=== PATIENT | female | born 1970 | race Caucasian/White ===

== ENCOUNTER 2022-06-25 08:46 | Emergency (ER) | payer OTHER, SELFPAY ==
[2022-06-25] VITALS (12 sets, daily range): BP systolic 141–170; BP diastolic 67–91; PULSE 57–68; RESP 16–22; TEMP 36.9; O2SAT 95–100; BMI 29.2
[2022-06-25 10:29] LABS: Add Manual Diff / Slide Review NO; Basophils Absolute Auto 0 /uL (0-100); Basophils Percent Auto 0.6 % (0-2); Eosinophils Absolute Auto 100 /uL (0-450); Eosinophils Percent Auto 1.2 % (2-4); Hematocrit 37.8 % (36-46); Hemoglobin 12.9 g/dL (12.0-16.0); Lymphocytes Absolute Auto 1500 /uL (1100-4500); Lymphocytes Percent Auto 26.3 % (25-40); Mean Corpuscular HGB Conc 34.2 % (30-36); Mean Corpuscular Hemoglobin 30.5 PG (26-34); Mean Corpuscular Volume 89.1 fL (80-100); Monocytes Absolute Auto 500 /uL (0-900); Monocytes Percent Auto 9.6 % (3-14); Neutrophils Absolute Auto 3500 /uL (1500-7000); Neutrophils Percent Auto 62.3 % (50-75); Platelet Count 283 X10^3/uL (150-400); Red Blood Cell Count 4.24 X10^6/uL (4.0-5.2); Red Cell Distribution Width 13.4 % (11.6-14.8); White Blood Cell Count 5.6 X10^3/uL (4.5-11.0)
[2022-06-25 10:47] LABS: Alanine Aminotransferase 14 IU/L (<35); Albumin 4.2 g/dL (3.5-5.0); Albumin Globulin Ratio 1.4 (1.0-2.8); Alkaline Phosphatase 43 U/L (38-126); Aspartate Aminotransferase 26 IU/L (14-36); BUN Creatinine Ratio 20.6 (6-22); Bilirubin Total 0.3 mg/dL (0.2-1.3); Blood Urea Nitrogen 13 mg/dL (7-17); Carbon Dioxide 27 mmol/L (22-32); Chloride 102 mmol/L (98-107); Estimated Glomerular Filt Rate > 60 mL/min (>60); Globulin 3.1 g/dL (1.7-4.1); Glucose 107 mg/dL (70-100); HEMOLYSIS < 15 (0-50); Lipase 43 U/L (23-300); Potassium 4.2 mmol/L (3.4-5.1); Sodium 139 mmol/L (137-145); Total Protein 7.3 g/dL (6.3-8.2)
--- NOTE | 2022-06-25 11:05 | ED_ITS ---
HPI - Female Genitourinary General Chief complaint: Abdominal Pain Stated complaint: bleeding 2 weeks pain is getting worse Time Seen by Provider: 06/25/22 10:43 Source: patient Mode of arrival: Ambulatory Limitations: no limitations History of Present Illness HPI Narrative: This is a 51-year-old female with no known medical issues presents with complaint of new right lower quadrant pain but also vaginal bleeding for the past 2 weeks. Patient states that she still gets fairly regular. Sometimes off by a week but pretty regular up to this point she had her last. Then 2 weeks later started bleeding around the 14 of June and has had persistent vaginal bleeding since little bit more than normal but has been tapering off recently. Denies lightheadedness or passing out, no fevers a little chilled today. Some mild nausea but no vomiting today. Patient states she developed right lower quadrant pain that caused her to have to be hunched over fairly abruptly today. She was not having any lower abdominal pain before. She denies back or flank pain. Patient denies any black or bloody stool. Patient states she sometimes gets constipated and takes a stool softener. Denies any urgency or frequency but has had a little bit of dysuria. No large clots today or sudden gushes of blood. Patient states no daily medications. She is had C- section x2 but no other surgeries. No known drug allergies. No tobacco occasional alcohol none for the last 2 weeks, no illicit or recreational drugs. Related Data Home Medications Medication Instructions Recorded Confirmed No Known Home Medications 01/06/19 01/06/19 Allergies Allergy/AdvReac Type Severity Reaction Status Date / Time No Known Drug Allergies Allergy Verified 01/06/19 20:01 Review of Systems Review of Systems ROS Unobtainable: All systems reviewed & are unremarkable except as noted in HPI and below Patient History Surgical History History of third molar tooth extraction Status post delivery (09/29/07) Status post delivery (01/24/10) Status post exploratory laparotomy alcohol intake frequency: a few times a week Substance Use Type: does not use Exam Narrative Exam Narrative: GENERAL: Alert and oriented x three, female in mild distress HEENT: Head normocephalic, atraumatic, EOMI, pupils reactive, face symmetric, moist mucous membranes NECK: Supple, full range of motion CARDIOVASCULAR: Regular rate and rhythm without murmurs, rubs or gallops. RESPIRATORY: Breath sounds equal bilaterally, no wheezes rales or rhonchi. ABDOMEN: Soft, patient has [id number] tenderness right lower quadrant only. No inguinal mass or hernia appreciated. Normoactive bowel sounds all 4 quadrants. No guarding or rebound, rigidity, no mass : No CVA tenderness EXTREMITIES: Normal range of motion, no clubbing or edema. Neurovascularly intact NEUROLOGICAL: Cranial nerves II through XII grossly intact. Moving all extremities SKIN: Warm, dry, no petechiae, no rashes or lesions. Initial Vital Signs Initial Vital Signs: Vital Signs Temperature 98.5 F 06/25/22 09:07 Pulse Rate 68 06/25/22 09:07 Respiratory Rate 22 06/25/22 09:07 Blood Pressure 170/85 H 06/25/22 09:07 Pulse Oximetry 100 06/25/22 09:07 Oxygen Delivery Method 06/25/22 09:07 Course Orders Ordered: ED Orders 06/25/22 13:03 CT abdomen pelvis w con Stat Discontinued Medications Ketorolac Tromethamine (Ketorolac 30 Mg/Ml Vial) 15 mg IV NOW ONE Stop: 06/25/22 11:17 Last Admin: 06/25/22 11:22 Dose: 15 mg Documented By: AT Ondansetron HCl (Ondansetron 4 Mg/2 Ml Inj) 4 mg IV NOW ONE Stop: 06/25/22 11:17 Last Admin: 06/25/22 11:21 Dose: 4 mg Documented By: AT Vital Signs Vital signs: Vital Signs - 8 hr 06/25/22 13:00 06/25/22 13:30 06/25/22 14:00 Pulse Rate 59 L 58 L 57 L Blood Pressure Pulse Oximetry 95 96 95 06/25/22 14:30 06/25/22 15:00 Pulse Rate 60 65 Blood Pressure 141/79 H Pulse Oximetry 98 96 MDM - Female Genitourinary Lab Data Result diagrams: 06/25/22 10:24 06/25/22 10:24 Labs: Lab Results 06/25/22 06/25/22 06/25/22 Range/Units 09:10 10:20 10:24 WBC 5.6 (4.5-11.0) X10^3/uL RBC 4.24 (4.0-5.2) X10^6/uL Hgb 12.9 (12.0-16.0) g/dL Hct 37.8 (36-46) % MCV 89.1 (80-100) fL MCH 30.5 (26-34) PG MCHC 34.2 (30-36) % RDW 13.4 (11.6-14.8) % Plt Count 283 (150-400) X10^3/uL Neut % (Auto) 62.3 (50-75) % Lymph % (Auto) 26.3 (25-40) % [place] % (Auto) 9.6 (3-14) % Eos % (Auto) 1.2 L (2-4) % Baso % (Auto) 0.6 (0-2) % Neut # (Auto) 3500 (9587-9602) /uL Lymph # (Auto) 1500 (6041-2338) /uL [place] # (Auto) 500 (0-900) /uL Eos # (Auto) 100 (0-450) /uL Baso # (Auto) 0 (0-100) /uL Sodium (137-145) mmol/L Potassium (3.4-5.1) mmol/L Chloride (98-107) mmol/L Carbon Dioxide (22-32) mmol/L BUN (7-17) mg/dL Creatinine (0.52-1.04) mg/dL Estimated GFR (>60) mL/min BUN/Creatinine Ratio (6-22) Glucose (70-100) mg/dL Calcium (8.4-10.2) mg/dL Total Bilirubin (0.2-1.3) mg/dL AST (14-36) IU/L ALT (<35) IU/L Alkaline Phosphatase (38-126) U/L Total Protein (6.3-8.2) g/dL Albumin (3.5-5.0) g/dL Globulin (1.7-4.1) g/dL Albumin/Globulin Ratio (1.0-2.8) Lipase (23-300) U/L Serum , Qual Negative (Negative) Urine RBC >100/hpf H (0-5/HPF) Urine WBC None seen (0-5/HPF) Ur Squamous Epith Cells 1-5 /hpf (0-5/HPF) Urine Bacteria None seen (None) Ur Culture Indicated? Cult not indicated 06/25/22 Range/Units 10:24 WBC (4.5-11.0) X10^3/uL RBC (4.0-5.2) X10^6/uL Hgb (12.0-16.0) g/dL Hct (36-46) % MCV (80-100) fL MCH (26-34) PG MCHC (30-36) % RDW (11.6-14.8) % Plt Count (150-400) X10^3/uL Neut % (Auto) (50-75) % Lymph % (Auto) (25-40) % [place] % (Auto) (3-14) % Eos % (Auto) (2-4) % Baso % (Auto) (0-2) % Neut # (Auto) (5367-9477) /uL Lymph # (Auto) (2007-6468) /uL [place]ier # (Auto) (0-900) /uL Eos # (Auto) (0-450) /uL Baso # (Auto) (0-100) /uL Sodium 139 (137-145) mmol/L Potassium 4.2 (3.4-5.1) mmol/L Chloride 102 (98-107) mmol/L Carbon Dioxide 27 (22-32) mmol/L BUN 13 (7-17) mg/dL Creatinine 0.63 (0.52-1.04) mg/dL Estimated GFR > 60 (>60) mL/min BUN/Creatinine Ratio 20.6 (6-22) Glucose 107 H (70-100) mg/dL Calcium 9.0 (8.4-10.2) mg/dL Total Bilirubin 0.3 (0.2-1.3) mg/dL AST 26 (14-36) IU/L ALT 14 (<35) IU/L Alkaline Phosphatase 43 (38-126) U/L Total Protein 7.3 (6.3-8.2) g/dL Albumin 4.2 (3.5-5.0) g/dL Globulin 3.1 (1.7-4.1) g/dL Albumin/Globulin Ratio 1.4 (1.0-2.8) Lipase 43 (23-300) U/L Serum , Qual (Negative) Urine RBC (0-5/HPF) Urine WBC (0-5/HPF) Ur Squamous Epith Cells (0-5/HPF) Urine Bacteria (None) Ur Culture Indicated? Urine Dip Bedside Urine Glucose Negative Bedside Urine Bilirubin - Negative Bedside Urine Ketone - Negative Urine Specific [place] 1.01 Bedside Urine Occult Blood +++ Bedside Urine pH 8.5 Bedside Urine Protein - Negative Bedside Urine Urobilinogen - Negative Bedside Urine Nitrite - Negative Bedside Urine Leukocytes - Negative Esterase Imaging Data US - F[facility]ER CARE THERAPIST: Radiologist's Impression: [address] [address] Ultrasound Report Signed Patient: Rachel Garza MR#: [id number] : 1970 Acct:[id number] Age/Sex: 51 / F Date of Service: 06/25/22 Loc: ED Accession Number: [id number] ?? Procedure: US pelvic complete Ordering Provider: Jacklyn Davila D.O. PROCEDURE:? US PELVIC COMPLETE ? INDICATIONS:? RLQ PAIN ? TECHNIQUE:? Real-time scanning was performed of the pelvic organs, with image documentation.? Additional endovaginal scanning was necessary due to incomplete visualization of the adnexal and endometrial structures by transabdominal scanning.? ? COMPARISON:? None. ? FINDINGS:? ?? Uterus:? Uterus is anteverted and normal in size at 9.0 x 5.1 x 5.4 cm. The myometrium is homogeneous. ? The endometrium measures 3.9 mm combined thickness. ? ? Ovaries:? The right ovary is not visualized.? The left ovary measures 2.4 x 2.4 x 1.4 cm, with a calculated ovarian volume of 4.2 cc. The left ovary has a normal sonographic appearance.? There is a 1.3 cm left follicular cyst.? No adnexal masses are seen. ? Other:? No pathologic free abdominal or pelvic fluid.? The appendix is not visualized. ? ? IMPRESSION:? ? 1. Unremarkable pelvic ultrasound in a premenopausal female.? In a postmenopausal female, the endometrial thickness is the upper limits of normal.? If there is a history of postmenopausal bleeding, endometrial biopsy is recommended to exclude hypertrophy or neoplasm. ? ? ? We strive to produce accurate, complete, and clear reports of imaging services. To assist us in improving patient care, this report was composed using standard report templates and voice recognition software. Therefore, it may contain abnormal punctuation, insertions and/or omissions. Occasional wrong-word or sound-alike substitutions may occur. Though we review the report and make efforts to correct it, we do recommend that the report be read carefully in proper context to recognize any text inaccuracies. ? ? Dictated by: Hermila Fung M.D. on 06/25/2022 at 11:55 ? ? Approved by: Hermila Fung M.D. on 06/25/2022 at 12:13?? CT scan - abdomen/pelvis: Radiologist's Impression: [place] [address] CT Scan Report Signed Patient: Rachel Garza MR#: [id number] : 1970 Acct:[id number] Age/Sex: 51 / F Date of Service: 06/25/22 Loc: ED Accession Number: [id number] ?? Procedure: CT abdomen pelvis w con Ordering Provider: Jacklyn Davila D.O. PROCEDURE:? CT ABDOMEN PELVIS W CON ? INDICATIONS:? RLQ pain ? TECHNIQUE:? After the administration of intravenous contrast, axial sections acquired from the lung bases to the pubic symphysis.? Coronal and sagittal reformats were performed.? For radiation dose reduction, the following was used:? automated exposure control, adjustment of mA and/or kV according to patient size.? ? COMPARISON:? [facility], CT, ABDOMEN/PELVIS WITH CONTRAST, 06/02/2013, 16:35. ? FINDINGS:? Image quality:? Excellent.? ? Lung bases:? Unremarkable. Heart:? No significant findings. ? ABDOMEN: Liver:? Unremarkable.? ? Gallbladder:? Unremarkable.? ? Biliary ducts:? Unremarkable.? ? Pancreas:? Unremarkable.? ? Spleen:? Unremarkable.? ? Adrenal Glands:? Unremarkable.? ? Kidneys and Ureters:? There is new mild left hydronephrosis.? No right hydronephrosis.? Ureters are nondistended..? ? ? Stomach and Bowel:? Stomach, small bowel loops, and colon are unremarkable.? Appendix not seen no evidence of appendicitis. Peritoneum:? No abnormal intraperitoneal fluid.? No free air.? ? Ventral Wall: ? No hernias.? Abdominal Nodes:? No retroperitoneal or mesenteric adenopathy by size criteria.? Vessels:? Aorta and inferior vena cava are normal in size.? ? PELVIS: Pelvic Organs:? Unremarkable.? ? Bladder:? Urinary bladder is decompressed. Pelvic Nodes: No enlarged lymph nodes.? Miscellaneous: No hernias are seen. ? ? ? Bones:? Unremarkable.? IMPRESSION:? 1. New mild left hydronephrosis. 2. Pending snot seen.? No evidence of appendicitis. ? ? Dictated by: Nba Calderon M.D. on 06/25/2022 at 13:22 ? ? Approved by: Nba Calderon M.D. on 06/25/2022 at 13:24?? ECG Data Attestation: I personally reviewed and interpreted this ECG as follows: Interpretation: Sinus rhythm rate of 64 [place] 1-2 QRS 86 and QTC of 422. No acute ST changes noted. MDM Narrative Medical decision making narrative: This is a 51-year-old female with complaint of pelvic pain in the right lower quadrant region that is new, patient also has had vaginal bleeding for the past 2 weeks and had more irregular periods recently. Suspect this may be more pelvic or ovarian pain but patient is distinctly tender in the right lower quadrant she does still have her appendix. She does not appear septic she is afebrile with otherwise reassuring labs. Patient has had some dysuria but urine shows blood likely from vaginal bleeding but no nitrates or leuks microscopy is pending. Discussed with patient CT abdomen pelvis versus pelvic ultrasound with attention to the right lower quadrant to rule out appendicitis versus pelvic pathology. CT abdomen pelvis is reassuring from appendicitis although appendix seen. Hydroureter on the left patient and I discussed she needs to follow-up. No other major abnormalities needs to follow up with [facility]/chemical radiation technician for vaginal bleeding and return precautions discussed. Patient has not been postmenopausal at this point she is been having regular periods. Discharge Plan Departure Patient Disposition: Home Clinical Impression: Pelvic pain, Abnormal vaginal bleeding Activity Restrictions/Additional Instructions: Follow-up with Dr. Dempsey for your vaginal bleeding. Your imaging today did not clearly show your appendix but does not show any signs, your left ureter is slightly enlarged but this would not cause pain on your right side. You may take Tylenol and/or ibuprofen as needed for pain. Please return for rapidly worsening symptoms, fevers, persistent vomiting, lightheadedness or passing out, worsening back or flank pain, going through more than 1 pad or tampon an or other new or concerning symptoms. Prescriptions: No Action No Known Home Medications Referrals: Columba Paulino ARNP [Primary Care Provider] - Jesica Dempsey MD [Physician] - Visit Report Forms: Patient Portal/API
--- NOTE | 2022-06-25 11:16 | DI.US.S_ITS ---
PROCEDURE: US PELVIC COMPLETE INDICATIONS: RLQ PAIN TECHNIQUE: Real-time scanning was performed of the pelvic organs, with image documentation. Additional endovaginal scanning was necessary due to incomplete visualization of the adnexal and endometrial structures by transabdominal scanning. COMPARISON: None. FINDINGS: Uterus: Uterus is anteverted and normal in size at 9.0 x 5.1 x 5.4 cm. The myometrium is homogeneous. The endometrium measures 3.9 mm combined thickness. Ovaries: The right ovary is not visualized. The left ovary measures 2.4 x 2.4 x 1.4 cm, with a calculated ovarian volume of 4.2 cc. The left ovary has a normal sonographic appearance. There is a 1.3 cm left follicular cyst. No adnexal masses are seen. Other: No pathologic free abdominal or pelvic fluid. The appendix is not visualized. IMPRESSION: 1. Unremarkable pelvic ultrasound in a premenopausal female. In a postmenopausal female, the endometrial thickness is the upper limits of normal. If there is a history of postmenopausal bleeding, endometrial biopsy is recommended to exclude hypertrophy or neoplasm. We strive to produce accurate, complete, and clear reports of imaging services. To assist us in improving patient care, this report was composed using standard report templates and voice recognition software. Therefore, it may contain abnormal punctuation, insertions and/or omissions. Occasional wrong-word or sound-alike substitutions may occur. Though we review the report and make efforts to correct it, we do recommend that the report be read carefully in proper context to recognize any text inaccuracies. Dictated by: Hermila Fung M.D. on 06/25/2022 at 11:55 Approved by: Hermila Fung M.D. on 06/25/2022 at 12:13
[2022-06-25] MEDS: ONDANSETRON 4 MG/2 ML INJ IV (11:21)
[2022-06-25] MEDS: KETOROLAC 30 MG/ML VIAL 15 MG IV (11:22)
[2022-06-25 11:32] LABS: Bacteria Urine None Seen; Culture Indicated Urine Cult Not Indicated; RBC Urine >100/HPF (0-5/HPF); Squamous Epithelial Cell Urine 1-5 /HPF (0-5/HPF); WBC Urine None Seen (0-5/HPF)
[2022-06-25 11:40] LABS: Pregnancy Test Serum,Qual Negative (Negative)
--- NOTE | 2022-06-25 13:03 | DI.CT.S_ITS ---
PROCEDURE: CT ABDOMEN PELVIS W CON INDICATIONS: RLQ pain TECHNIQUE: After the administration of intravenous contrast, axial sections acquired from the lung bases to the pubic symphysis. Coronal and sagittal reformats were performed. For radiation dose reduction, the following was used: automated exposure control, adjustment of mA and/or kV according to patient size. COMPARISON: [facility], CT, ABDOMEN/PELVIS WITH CONTRAST, 06/02/2013, 16:35. FINDINGS: Image quality: Excellent. Lung bases: Unremarkable. Heart: No significant findings. ABDOMEN: Liver: Unremarkable. Gallbladder: Unremarkable. Biliary ducts: Unremarkable. Pancreas: Unremarkable. Spleen: Unremarkable. Adrenal Glands: Unremarkable. Kidneys and Ureters: There is new mild left hydronephrosis. No right hydronephrosis. Ureters are nondistended.. Stomach and Bowel: Stomach, small bowel loops, and colon are unremarkable. Appendix not seen no evidence of appendicitis. Peritoneum: No abnormal intraperitoneal fluid. No free air. Ventral Wall: No hernias. Abdominal Nodes: No retroperitoneal or mesenteric adenopathy by size criteria. Vessels: Aorta and inferior vena cava are normal in size. PELVIS: Pelvic Organs: Unremarkable. Bladder: Urinary bladder is decompressed. Pelvic Nodes: No enlarged lymph nodes. Miscellaneous: No hernias are seen. Bones: Unremarkable. IMPRESSION: 1. New mild left hydronephrosis. 2. Pending snot seen. No evidence of appendicitis. Dictated by: Nba Calderon M.D. on 06/25/2022 at 13:22 Approved by: Nba Calderon M.D. on 06/25/2022 at 13:24
== END 2022-06-25 15:09 | disposition home or self-care (01) ==
PROVIDERS: Emergency Provider Emergency Medicine; PCP Nurse Practitioner
DX: R10.2 Pelvic and perineal pain (principal); N93.9 Abnormal uterine and vaginal bleeding, unspecified
CPT/HCPCS: 36415; 74177; 76830; 76856; 80053; 81003; 81015; 83690; 84703; 85025; 93005; 96374; 96375; 99284; J1885; J2405; Q9967

== ENCOUNTER → 2023-08-16 17:51 | Outpatient (CLI) | payer OTHER, SELFPAY | PROVIDERS: PCP Nurse Practitioner; Visit Provider Nurse Practitioner Family | DX: M54.9 Dorsalgia, unspecified (principal) | CPT/HCPCS: 87086 ==

== ENCOUNTER 2024-10-04 21:02 | Emergency (ER) | payer OTHER, SELFPAY ==
[2024-10-04 21:13] VITALS: BP 168/68; PULSE 87; RESP 18; TEMP 37.1; O2SAT 97; BMI 26.9
[2024-10-04 21:28] LABS: Add Manual Diff / Slide Review NO; Basophils Absolute Auto 0 /uL (0-100); Basophils Percent Auto 0.5 % (0-2); Eosinophils Absolute Auto 100 /uL (0-450); Eosinophils Percent Auto 1.3 % (2-4); Hematocrit 40.2 % (36-46); Hemoglobin 13.5 g/dL (12.0-16.0); Lymphocytes Absolute Auto 1900 /uL (1100-4500); Lymphocytes Percent Auto 22.2 % (25-40); Mean Corpuscular HGB Conc 33.5 % (30-36); Mean Corpuscular Hemoglobin 30.3 PG (26-34); Mean Corpuscular Volume 90.4 fL (80-100); Monocytes Absolute Auto 800 /uL (0-900); Monocytes Percent Auto 9.6 % (3-14); Neutrophils Absolute Auto 5700 /uL (1500-7000); Neutrophils Percent Auto 66.4 % (50-75); Platelet Count 300 X10^3/uL (150-400); Red Blood Cell Count 4.45 X10^6/uL (4.0-5.2); Red Cell Distribution Width 13.7 % (11.6-14.8); White Blood Cell Count 8.6 X10^3/uL (4.5-11.0)
[2024-10-04 21:39] LABS: Alanine Aminotransferase 17 IU/L (<35); Albumin 4.3 g/dL (3.5-5.0); Albumin Globulin Ratio 1.5 (1.0-2.8); Alkaline Phosphatase 53 U/L (38-126); Aspartate Aminotransferase 28 IU/L (14-36); BUN Creatinine Ratio 17.9 (6-22); Bilirubin Total 0.3 mg/dL (0.2-1.3); Blood Urea Nitrogen 14 mg/dL (7-17); Calcium 9.4 mg/dL (8.4-10.2); Carbon Dioxide 29 mmol/L (22-32); Chloride 103 mmol/L (98-107); Estimated Glomerular Filt Rate > 60 mL/min (>60); Globulin 2.8 g/dL (1.7-4.1); Glucose 99 mg/dL (70-100); HEMOLYSIS 26 (0-50); Potassium 3.8 mmol/L (3.4-5.1); Sodium 136 mmol/L (137-145); Total Protein 7.1 g/dL (6.3-8.2)
[2024-10-04 21:40] LABS: Lactate (Lactic Acid) 0.7 mmol/L (0.7-2.1)
[2024-10-04 23:09] VITALS: PULSE 81; O2SAT 98
[2024-10-04 23:10] VITALS: BP 120/70; PULSE 78; RESP 16; O2SAT 98
--- NOTE | 2024-10-04 23:13 | ED.ABDPAIN ---
HPI - Abdominal Pain General Chief Complaint: Abdominal Pain Stated Complaint: poss appendicitis Time Seen by Provider: 10/04/24 23:10 Source: patient Mode of arrival: Ambulatory History of Present Illness HPI narrative: Patient is a 53-year-old healthy female who presents today with right lower quadrant pain. She reports it has been across her lower abdomen for about 2 days. She has slightly decreased appetite mild nausea no real flank pain. Although she does report there is kind of like a band going around her. No fever or chills. Not wanting or needing anything for pain now. Related Data Previous Rx's Medication Instructions Recorded ondansetron 4 mg disintegrating 4 mg PO Q8H PRN nausea and 10/05/24 tablet vomiting #10 tabs ondansetron 4 mg disintegrating 4 mg PO Q8H PRN nausea and 10/05/24 tablet vomiting #10 tabs Allergies Allergy/AdvReac Type Severity Reaction Status Date / Time No Known Drug Allergies Allergy Verified 08/16/23 17:58 Patient History Surgical History History of third molar tooth extraction Status post exploratory laparotomy Status post delivery (01/24/10) Status post delivery (09/29/07) Social History Smoking Status: Never smoker Smoking Status: Never smoker alcohol intake frequency: a few times a week Exam Initial Vital Signs Initial Vital Signs: Vital Signs Temperature 98.7 F 10/04/24 21:13 Pulse Rate 87 10/04/24 21:13 Respiratory Rate 18 10/04/24 21:13 Blood Pressure 168/68 H 10/04/24 21:13 Pulse Oximetry 97 10/04/24 21:13 Oxygen Delivery Method Room Air 10/04/24 21:13 GENERAL: Alert pleasant well-appearing 53-year-old female and in no acute distress. HEENT: Head atraumatic,EOMI, pupils reactive, face symmetric, moist mucous membranes CARDIOVASCULAR: Regular rate and rhythm without murmurs, rubs or gallops. RESPIRATORY: Breath sounds equal bilaterally, no wheezes rales or rhonchi. ABDOMEN: Soft, mild right lower quadrant pain and suprapubic pain no guarding or rebound no epigastric pain negative Gonzales's sign no significant distention : No CVA tenderness EXTREMITIES: Normal range of motion, no clubbing or edema. Neurovascularly intact NEUROLOGICAL: Alert and oriented x4.Normal gait and speech. SKIN: Warm, dry, no laceration, no petechiae, no rashes or lesions. Course Orders Ordered: ED Orders 10/04/24 21:19 Complete Blood Count AUTO DIFF Stat Comprehensive Metabolic Panel Stat Lactate (Lactic Acid) Stat 10/04/24 23:14 CT abdomen pelvis w con Stat Vital Signs Vital signs: Vital Signs - 8 hr 10/04/24 23:09 10/04/24 23:10 10/04/24 23:10 Pulse Rate 81 78 Respiratory Rate 16 Blood Pressure 120/70 Pulse Oximetry 98 98 Oxygen Delivery Method Room Air 10/04/24 23:30 10/05/24 00:00 10/05/24 00:17 Pulse Rate 69 62 69 Respiratory Rate 16 Blood Pressure Pulse Oximetry 97 96 97 Oxygen Delivery Method Room Air 10/05/24 00:17 10/05/24 00:30 10/05/24 00:30 Pulse Rate 62 Respiratory Rate Blood Pressure 131/72 145/76 H Pulse Oximetry 96 Oxygen Delivery Method 10/05/24 01:00 10/05/24 01:00 Pulse Rate 62 Respiratory Rate Blood Pressure 146/64 H Pulse Oximetry 96 Oxygen Delivery Method MDM - Abdominal Pain Lab Data 10/04/24 21:19 10/04/24 21:19 Labs: Lab Results 10/04/24 Range/Units 21:19 WBC 8.6 (4.5-11.0) X10^3/uL RBC 4.45 (4.0-5.2) X10^6/uL Hgb 13.5 (12.0-16.0) g/dL Hct 40.2 (36-46) % MCV 90.4 (80-100) fL MCH 30.3 (26-34) PG MCHC 33.5 (30-36) % RDW 13.7 (11.6-14.8) % Plt Count 300 (150-400) X10^3/uL Neut % (Auto) 66.4 (50-75) % Lymph % (Auto) 22.2 L (25-40) % Atlantic % (Auto) 9.6 (3-14) % Eos % (Auto) 1.3 L (2-4) % Baso % (Auto) 0.5 (0-2) % Neut # (Auto) 5700 (2494-9715) /uL Lymph # (Auto) 1900 (8602-1407) /uL Atlantic # (Auto) 800 (0-900) /uL Eos # (Auto) 100 (0-450) /uL Baso # (Auto) 0 (0-100) /uL Sodium 136 L (137-145) mmol/L Potassium 3.8 (3.4-5.1) mmol/L Chloride 103 (98-107) mmol/L Carbon Dioxide 29 (22-32) mmol/L BUN 14 (7-17) mg/dL Creatinine 0.78 (0.52-1.04) mg/dL Estimated GFR > 60 (>60) mL/min BUN/Creatinine Ratio 17.9 (6-22) Glucose 99 (70-100) mg/dL Lactate 0.7 (0.7-2.1) mmol/L Calcium 9.4 (8.4-10.2) mg/dL Total Bilirubin 0.3 (0.2-1.3) mg/dL AST 28 (14-36) IU/L ALT 17 (<35) IU/L Alkaline Phosphatase 53 (38-126) U/L Total Protein 7.1 (6.3-8.2) g/dL Albumin 4.3 (3.5-5.0) g/dL Globulin 2.8 (1.7-4.1) g/dL Albumin/Globulin Ratio 1.5 (1.0-2.8) Point of care testing: Urine Dip Bedside Urine Glucose Negative Bedside Urine Bilirubin - Negative Bedside Urine Ketone - Negative Urine Specific Lindstrom 1.015 Bedside Urine Occult Blood - Negative Bedside Urine pH 6 Bedside Urine Protein - Negative Bedside Urine Urobilinogen - Negative Bedside Urine Nitrite - Negative Bedside Urine Leukocytes - Negative Esterase Imaging Data CT scan - abdomen/pelvis: Radiologist's Impression: PROCEDURE: CT ABDOMEN PELVIS W CON INDICATIONS: right lower quad pain TECHNIQUE: After the administration of intravenous contrast, axial sections acquired from the lung bases to the pubic symphysis. Coronal and sagittal reformats were performed. For radiation dose reduction, the following was used: automated exposure control, adjustment of mA and/or kV according to patient size. COMPARISON: [facility], CT, CT ABDOMEN PELVIS W CON, 06/25/2022, 13:14. FINDINGS: Image quality: Diagnostic. Lower Chest: No significant findings. ABDOMEN: Liver: No solid mass. Gallbladder: No radiopaque gallstones or wall thickening. Biliary ducts: No biliary dilation. Pancreas: No ductal dilation. Spleen: Size is within normal limits. Adrenal Glands: No adrenal nodules. Kidneys and Ureters: No hydronephrosis. No solid mass. No complex renal cystic lesion which requires follow up. Incidental a retroaortic renal vein. Stomach and Bowel: Normal colonic caliber, without significant wall thickening. Appendix is normal. Peritoneum: No abnormal intraperitoneal fluid. No free air. Ventral Wall: Small circumscribed fat containing focus in the subcutaneous fat of the right lower quadrant with minimal surrounding inflammatory change. There is no visualized diastasis of the underlying rectus musculature to suggest hernia. Abdominal Nodes: No retroperitoneal or mesenteric adenopathy by size criteria. Vessels: Aorta and inferior vena cava are normal in size. PELVIS: Pelvic Organs: Unremarkable. Bladder: No bladder wall thickening, accounting for underdistention. Pelvic Nodes: No enlarged lymph nodes. Miscellaneous: No inguinal hernias are seen. Bones: No aggressive osseous abnormality. IMPRESSION: Mild appearance of inflammatory change within the subcutaneous fat of the right lower quadrant overall nonspecific. Appendix is normal. Dictated by: Tena Broderick M.D. on 10/04/2024 at 23:57 Approved by: Tena Broderick M.D. on 10/05/2024 at 0:03 [facility] Narrative Medical decision making narrative: [facility] CC: Abdominal pain Complicating co-morbidities: none Medical records reviewed: Previous ED Differential considered: Diverticulitis, ovarian cyst torsion nephrolithiasis cystitis Exam documented above, pertinent findings include: Right lower quadrant pain no significant guarding or rebound abdomen is relatively soft she has no CVA tenderness she appears well Lab Test results independently reviewed as above. Pertinent findings: CBC WBCs 8.6 hemoglobin 13.5 hematocrit 40.2 platelets 300 Sodium 136 potassium 3.8 chloride 103 carbon dioxide 29 BUN 14 creatinine 0.78 Urinalysis negative Independently reviewed EKG as above Imaging studies independently reviewed: CT abdomen she was mild appearance of inflammatory change within subcutaneous fat in the right lower quadrant appendix normal Treatments: None Re-evaluations: Patient sleeping appears comfortable Discussion: Patient 53-year-old female presenting today with right lower quadrant pain. She was no leukocytosis blood work and urine overall reassuring. She was some mild inflammation in the subcutaneous fat on CT but a normal appendix. She would have 1 episode of diarrhea she is frequently nauseous. I do not think she needs a pelvic ultrasound at this time. I do not think she needs antibiotics either she has no leukocytosis. Treat conservatively. Discussed with patient strict return precautions Discharge Plan Departure Patient Disposition: Home Clinical Impression: Colitis Instructions: DI for Colitis Activity Restrictions/Additional Instructions: *You have been diagnosed with mild inflammation of colon *What to do: At this time you do have a little bit of inflammation in your colon. Your blood work is overall reassuring. Recommend at least a clear liquid diet oral low fiber diet until this starts to feel better for you. *Continue to take medications as directed Tylenol or Motrin as needed for pain Zofran 4 mg every 8 hours if needed for nausea or vomiting *Follow up with your primary care provider in 2-3 days or call [phone] *Return to ER if you should have increasing pain bloody stools persistent vomiting or any new, worsening or concerning symptoms Prescriptions: New ondansetron 4 mg tablet,disintegrating 4 mg PO Q8H PRN (Reason: nausea and vomiting) Qty: 10 0RF ondansetron 4 mg tablet,disintegrating 4 mg PO Q8H PRN (Reason: nausea and vomiting) Qty: 10 0RF Referrals: Columba Paulino ARNP [Primary Care Provider] - Stand Alone Forms: Patient Portal/API/Survey
--- NOTE | 2024-10-04 23:22 | PC.NURSE ---
Pt taken to imaging via ED stretcher with tech
[2024-10-04 23:30] VITALS: PULSE 69; O2SAT 97
[2024-10-05] VITALS: PULSE 62; O2SAT 96
[2024-10-05 00:17] VITALS: BP 131/72; PULSE 69; RESP 16; O2SAT 97
[2024-10-05 00:30] VITALS: BP 145/76; PULSE 62; O2SAT 96
[2024-10-05 01:00] VITALS: BP 146/64; PULSE 62; O2SAT 96
== END 2024-10-05 01:21 | disposition home or self-care (01) ==
PROVIDERS: Emergency Provider Emergency Medicine; PCP Nurse Practitioner
DX: K52.9 Noninfective gastroenteritis and colitis, unspecified (principal)
CPT/HCPCS: 36415; 74177; 80053; 81003; 83605; 85025; 99283; 99284; Q9967

== ENCOUNTER → 2025-02-02 09:05 | Outpatient (CLI) | payer OTHER, SELFPAY | LOC: LAB 09:15 | PROVIDERS: PCP Nurse Practitioner; Visit Provider Physician Assistant | DX: R10.9 Unspecified abdominal pain (principal) | CPT/HCPCS: 87086 ==

== ENCOUNTER → 2025-02-03 08:11 | Outpatient (CLI) | payer OTHER, SELFPAY ==
--- NOTE | 2025-02-03 08:29 | DI.US.S_ITS ---
PROCEDURE: US ABDOMEN LIMITED INDICATIONS: RUQ and flank pain, biliary in nature TECHNIQUE: Real-time scanning was performed of the abdominal and retroperitoneal organs, with image documentation. COMPARISON: None. FINDINGS: Liver: Liver is normal in size and homogeneous in echotexture. Gallbladder: Gallbladder is nondistended. No ultrasound evidence of gallstones, gallbladder wall thickening or pericholecystic fluid. Biliary ducts: Intrahepatic bile ducts are non-dilated. Extrahepatic bile duct caliber measures 5 mm. Normal is 6-7 mm or less in diameter. Pancreas: Visualized portions of the pancreas are sonographically normal. Spleen: Spleen is normal in size and homogeneous in echotexture. Kidneys: Right kidney is normal in size and echotexture, measures 9.7 cm long. No hydronephrosis or nephrolithiasis. No ultrasound evidence of solid mass. IMPRESSION: No gallstones. Common bile duct 5 mm within normal limits. If symptoms persist or worsen, or there is high clinical suspicion of abdominal abnormality, CT could be performed. Dictated by: Gustabo Fishman M.D. on 02/03/2025 at 8:43 Approved by: Gustabo Fishman M.D. on 02/03/2025 at 8:45
== END ==
PROVIDERS: PCP Family Medicine; Referring Provider Physician Assistant; Visit Provider Physician Assistant
DX: R10.9 Unspecified abdominal pain (principal)
CPT/HCPCS: 76705

== ENCOUNTER → 2025-10-10 13:06 | Outpatient (CLI) | payer SELFPAY | PROVIDERS: PCP Family Medicine; Visit Provider Chiropractor | DX: J02.9 Acute pharyngitis, unspecified (principal) | CPT/HCPCS: 87070 ==